=== PATIENT | female | born 1985 | race Asian ===

== ENCOUNTER 2020-01-05 07:11 | Inpatient (IN) ==
[2020-01-05] MEDS ORDERED: OBEPIDURAL 250 ML EPIDURAL ONE (09:50)
[2020-01-05] MEDS ORDERED: Sodium Citrate/Citric Acid LIQ 15 ML UDC PO PRN (10:27)
[2020-01-05] MEDS ORDERED: Lactated Ringers 1000 ml BAG 1,000 ML IV ONE (10:27)
[2020-01-05] MEDS ORDERED: Phenylephrine 40 mcg/mL 10mL (400mcg) SYRINGE IV PUSH PRN (10:27)
[2020-01-05] MEDS ORDERED: OBEPIDURAL 250 ML EPIDURAL SCH (11:00)
[2020-01-05] MEDS ORDERED: Lactated Ringers 1000 ml BAG 1,000 ML IV SCH ×2 (11:00→17:00)
[2020-01-05] MEDS ORDERED: Oxytocin in LR 20 UNITS/1,000 ML BAG IVPB ONE (16:28)
[2020-01-05] MEDS ORDERED: Glycerin ADULT 2.4 gm SUPP PR PRN (16:44)
[2020-01-05] MEDS ORDERED: Dibucaine 1% OINT 28.35 GM TUBE PR PRN (16:44)
[2020-01-05] MEDS ORDERED: Witch Hazel PAD JAR TOPICAL PRN (16:44)
[2020-01-05] MEDS ORDERED: Oxytocin in LR 20 UNITS/1,000 ML BAG IVPB SCH (17:00)
[2020-01-05] MEDS ORDERED: Lidocaine 1% VIAL 10 MG/ML VIAL ONE (20:00)
[2020-01-06 08:28] LABS: ABS Lymphocytes 1.2 10^3/ul (1.0-4.8); ABS Monocytes 0.5 10^3/ul (0-0.8); ABS Neutrophils 10.2 10^3/ul (1.5-7.7); Eosinophil % 0.1 %; Hematocrit 31 % (35-47); Hemoglobin 10.7 g/dL (12.0-16.0); Lymphocyte % 9.9 %; Mean Corpuscular HGB Conc 35 g/dL (31-36); Mean Corpuscular Hemoglobin 33 pg (27-31); Mean Corpuscular Volume 93 fL (80-97); Mean Platelet Volume 8.5 fL (7.4-10.4); Platelet Count 152 10^3/uL (150-450); Red Blood Count 3.28 10^6 /uL (3.70-4.87); Red Cell Distribution Width 13 % (10-15); White Blood Count 11.9 10^3/uL (3.5-10.8)
[2020-01-07 07:58] VITALS: BP 107/67
== END 2020-01-07 16:03 | disposition home or self-care (01) | DRG 807 ==
LOC: MCHOBOUT 07:11 → MCHOB 08:33
PROVIDERS: ADMIT Obstetrics & Gynecology; ATTEND Obstetrics & Gynecology